=== PATIENT | male | born 1945 | race Caucasian/White ===

== ENCOUNTER 2019-01-27 06:50 | Day surgery (SDC) | payer MEDICARE, BC ==
[~2019-01-27 06:50] MED LIST: Lactated Ringers 1,000 ML IV SCH
[2019-01-27] MEDS ORDERED: Midazolam 1 MG/ML 2 ML SDV IV ONE (06:51)
[2019-01-27] MEDS ORDERED: Propofol 200 MG/20 ML SDV IV ONE (06:51)
--- NOTE | 2019-01-27 08:22 | PCM.OPNOTE ---
- General Post-Op/Procedure Note Date of Surgery/Procedure: 01/27/19 Operative Procedure(s): c scope with bx Findings: descending colon polyps x2 Pre Op Diagnosis: screening Post-Op Diagnosis: descending colon polyp Anesthesia Technique: MAC Primary Surgeon: Ashkan Stevens Anesthesia Provider: Lila Ayala Pathology: descending colon polyp x2 Complications: None Condition: Good Free Text/Narrative:: see dictation
--- NOTE | 2019-01-27 10:00 | OR ---
DATE OF OPERATION: 01/27/2019 SURGEON: Ashkan Stevens MD PROCEDURE PERFORMED: Colonoscopy with cold forceps biopsy. PREOPERATIVE DIAGNOSIS: Need for screening C-scope. POSTOPERATIVE DIAGNOSIS: Descending colon polyps x2. INDICATIONS FOR PROCEDURE: This is a 73-year-old white male, referred for screening colonoscopy. He was offered and accepted his C-scope. DESCRIPTION OF OPERATION: After an excellent IV sedation was administered, digital rectal exam was performed. No marked abnormality was noted. Flexible colonoscope was inserted and advanced to the cecum. Prep was excellent. Following findings were noted. Ascending colon, unremarkable. Transverse colon, unremarkable. Descending colon, two small polypoid lesions, biopsied with cold biopsy forceps and sent for permanent. Sigmoid and rectum, unremarkable. Colon was deflated. The patient tolerated the procedure well. Results by letter. /[id number] /MODL
== END 2019-01-27 09:11 | disposition home or self-care (01) ==
LOC: FB.SDS 06:50
PROVIDERS: ATTEND Surgery
DX: Z12.11 Encounter for screening for malignant neoplasm of colon (principal); K63.5 Polyp of colon; I10 Essential (primary) hypertension; E78.5 Hyperlipidemia, unspecified; Z87.891 Personal history of nicotine dependence; Z79.82 Long term (current) use of aspirin; Z79.899 Other long term (current) drug therapy; Z98.890 Other specified postprocedural states
CPT/HCPCS: 00812; 45380; 88305; J2250; J2704; J7120